=== PATIENT | female | born 1980 | race Two or more races ===

== ENCOUNTER 2020-02-23 15:27 | Emergency (ER) | payer BC ==
[~2020-02-23] VITALS: Ht 165.1 cm; Wt 84.0 kg
--- NOTE | 2020-02-23 17:07 | RAD ---
EXAM: Chest, single view. HISTORY: Pain with inspiration. COMPARISON: None. FINDINGS: A frontal view of the chest obtained. There is bilateral lower lobe interstitial infiltrate. There is no consolidation, protrusion or pneumothorax. The heart is normal in size. IMPRESSION: Bilateral lower lobe interstitial infiltrate. Electronically signed by: Yolis Raphael MD (02/23/2020 5:04 PM) [id number]
--- NOTE | 2020-02-23 17:34 | ED.ADGEN ---
Past Medical History Past Medical History: Hypertension Past Surgical History: Smoking Status: Never Smoker Alcohol Use: None General Adult EDM: Chief Complaint: CHEST WALL PAIN HPI: HPI: Patient is a 39 year old female who presents to the emergency room with complaints of chest pain with inspiration that began yesterday. 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 She states that she developed the pain with inspiration yesterday and reports having a dry cough since yesterday. She also reports fever, chills, and a stuffy nose. She denies any vision changes, decreased sensation, nausea, vomiting, diarrhea, abdominal pain, or loss of smell/taste. The patient denies any shortness of breath. Patient reports that she did have some low blood pressure (90's systolic) with dizziness a few days ago but stopped taking her blood pressure medications and currently denies any dizziness or problems with her blood pressure. She currently rates her pain a 5 out of 10 on the pain scale describes it as just generalized body aches. Review of Systems: Review of Systems: Complete ROS is negative unless otherwise noted in HPI. Allergies: Allergies: Allergies Coded Allergies Type Severity Reaction Last Updated Verified No Known Drug Allergies 02/23/20 No Physical Exam: PE: See Above Constitutional: Well developed, well nourished, no acute distress, non-toxic appearance. [] HENT: Normocephalic, atraumatic, bilateral external ears normal, nose normal. [] Eyes: PERRLA, EOMI, conjunctiva normal, no discharge. [] Neck: Normal range of motion, no stridor. [] Cardiovascular:Heart rate regular rhythm Lungs & Thorax: Respirations even and unlabored, no retractions, no respiratory distress Skin: Warm, dry, no erythema, no rash. [] Extremities: No cyanosis, ROM intact, no edema. [] Neurologic: Alert and oriented X 3, no focal deficits noted. [] Psychologic: Affect normal, judgement normal, mood normal. [] Current Patient Data: Labs: Laboratory Tests Test 02/23/20 15:49 POC Urine HCG, Qualitative Hcg negative (Negative) Vital Signs: Vital Signs Date Time Temp Pulse Resp B/P (MAP) Pulse Ox O2 Delivery O2 Flow Rate FiO2 02/23/20 17:57 102 20 133/77 (95) 90 Room Air 02/23/20 15:51 99.8 99.8 EKG: EK-sinus tachycardia, rate 103, no STEMI read by Dr. Jensen [] Heart Score: Risk Factors: Risk Factors: DM, Current or recent (<one month) smoker, HTN, HLP, family history of CAD, obesity. Risk Scores: Score 0 - 3: 2.5% MACE over next 6 weeks - Discharge Home Score 4 - 6: 20.3% MACE over next 6 weeks - Admit for Clinical Observation Score 7 - 10: 72.7% MACE over next 6 weeks - Early Invasive Strategies Radiology/Procedures: Radiology/Procedures: PROCEDURE: CHEST AP ONLY EXAM: Chest, single view. HISTORY: Pain with inspiration. COMPARISON: None. FINDINGS: A frontal view of the chest obtained. There is bilateral lower lobe interstitial infiltrate. There is no consolidation, protrusion or pneumothorax. The heart is normal in size. IMPRESSION: Bilateral lower lobe interstitial infiltrate. [] Course & Med Decision Making: Course & Med Decision Making Pertinent Labs and Imaging studies reviewed. (See chart for details) 39-year-old female presented to the emergency room with complaints of pain on inspiration after being diagnosed with COVID-19 1 week ago. Chest x-ray is concerning for bilateral lower lobe pneumonia. The patient's oxygen saturation remained 96-98 on room air. Her vital signs are stable. Prescriptions were written for Z-Evin, Medrol Dosepak, and albuterol MDI. The patient was provided with quarantine instructions. She is encouraged to fill the prescriptions take them as directed. I encouraged her to continue using her home pulse oximeter to monitor her oxygen level and to continue monitoring her blood pressure. I encouraged her to return to the emergency room if her symptoms worsened. COVID-19 CRITERIA: The patient was evaluated during the global COVID-19 pandemic, and that diagnosis was suspected/considered upon their initial presentation. Their evaluation, treatment and testing was consistent with current guidelines for patients who present with complaints or symptoms that may be related to COVID-19. [] Dragon Disclaimer: Dragon Disclaimer: This electronic medical record was generated, in whole or in part, using a voice recognition dictation system. Departure Departure Impression: Primary Impression: Pneumonia due to COVID-19 virus Disposition: 01 DC HOME SELF CARE/HOMELESS Condition: STABLE Referrals: RYAN YOUSSEF (PCP) Patient Instructions: Pneumonia, Adult, [id number] Additional Instructions: Fill the prescriptions and use them as directed. Use your home pulse oximeter to monitor your oxygen as discussed. Return to the ER if your symptoms worsen. You have been tested for or diagnosed with COVID-19. It is an infection caused by a new type of coronavirus. COVID-19 will cause cold-like or mild flu symptoms in most. It can cause more severe symptoms like problems breathing in some. There is no treatment for COVID-19. The body will clear the infection over time. Self-care will help to ease discomfort. Steps to Take: Self-Care Rest as needed. Healthy habits may help you feel better. Steps include: Choose healthy foods including fruits and vegetables. Drink water throughout the day. Get plenty of sleep each night. If you smoke, try to quit. It may ease breathing. Avoid alcohol. Keep Others Healthy The virus can spread to others. Droplets are released every time you sneeze or cough. The droplets can get into the mouth, nose, or eyes of people near you and lead to infection. To lower the chances of spreading COVID-19 to others: Stay at home until your doctor has said it is safe to leave. If you tested positive this will mean staying isolated until both of the following are true: At least 7 days have passed since the start of illness. You are free of fever for at least 72 hours without the use of medicine. During this time: - Avoid public areas, events, or transportation. Do not return to work or school until your doctor has said it is safe to do so. - Call ahead if you need to go to a medical center. Let them know you may have COVID-19. It will help them guide you where to go. They may also ask you to wear a facemask when you come to the office. - If you call for emergency medical services, let them know you may have COVID- 19. While at home: - Try to avoid close contact with others. Stay about 6 feet away. - If possible, spend most of your time in a separate room from others. - Use a face mask if you will be in close contact with others such as sharing a room or vehicle. - Have someone wipe down common surfaces in the home. Use household fuel quality tech every day on areas like doorknobs, counters, or sinks. - Cough or sneeze into a tissue. Throw the tissue away right after use. If a tissue is not available, cough or sneeze into your elbow. - Wash your hands often. Wash them after sneezing or coughing. Use soap and water and wash for at least 20 seconds. Alcohol based hand vacuum cleaner operator can be used if soap and water is not available. - Do not prepare food for others. Avoid sharing personal items like forks, spoons, or toothbrushes. - Avoid close contact with pets while you are sick. There is no evidence of the virus passing to pets. This is a safety step until more is known about this virus. Isolation can be frustrating. Social interaction can help. Keep in touch with friends and family through phone and tech options. You can still interact with others in your home, just keep a safe distance of about 6 feet. Follow-up: Your doctors office will check in with you to see if there are any changes in your health. You may be asked to keep track of symptoms to share with them. They will also let you know when you are clear to be in public again. Problems to Look Out For: Contact your doctor if your recovery is not going as you expect. Get emergency care if you have problems such as: - Trouble breathing - Nonstop chest pain or pressure - Changes in awareness, confusion, or problems waking - Lips or face have bluish color - Worsening of symptoms If you think you have an emergency, call for emergency medical services right away. As taken from [employer] [facility] Albuterol Sulfate (Proair Hfa) 8.5 Gm Hfa.aer.ad 2 PUFF IH PRN Q4-6HRS PRN for wheezing for 21 Days, #1 INHALER 0 Refills Prov: JEMIMA MANN APRN 02/23/20 Methylprednisolone (MEDROL) 4 Mg Tab.ds.pk 1 PKG PO UD for 6 Days, #1 PKG 0 Refills Prov: JEMIMA MANN APRN 02/23/20 Azithromycin (AZITHROMYCIN TABLET) 250 Mg Tablet 1 PKG PO UD for 5 Days, #6 TAB 0 Refills 2 the first day followed by 1 for days 2-5 Prov: JEMIMA MANN APRN 02/23/20 COVID-19 Assessment: COVID-19 Patient Risks: Age 65 or older: No Sign of co-morbidity: Yes Exp to person + for COVID: Yes Exp to PUI: Yes Travel from affected area: No Lower respiratory symptoms: Yes Fever: Yes Other: Yes (Previous positive COVID-19 test) PPE Use: Full PPE with N95 mask or PAPR: Yes JEMIMA MANN APRN Feb 23, 2020 17:34
[2020-02-23 17:57] VITALS: BP 133/77
[2020-02-23] MEDS ORDERED: AZIT250T6 PO (18:05)
[2020-02-23] MEDS ORDERED: METH4TAB2 PO (18:05)
[2020-02-23] MEDS ORDERED: ALBU2.5V8 IH (18:05)
== END 2020-02-23 18:27 | disposition home or self-care (01) ==
LOC: ER 15:27
DX: U07.1 COVID-19 (principal); J12.89 Other viral pneumonia; I10 Essential (primary) hypertension
CPT/HCPCS: 71045; 81025; 93005; 99284